=== PATIENT | male | born 1960 | race Caucasian/White ===

== ENCOUNTER 2021-09-23 13:54 | Outpatient (REF) | payer OTHER, SELFPAY ==
--- NOTE | ~2021-09-23 | CT_ITS ---
EXAMINATION: CT CHEST SCREENING CLINICAL INFORMATION: Former smoker one pack a day for 39 years. COMPARISON: None. TECHNIQUE: Multidetector volumetric CT imaging of the chest is performed without contrast using low dose technique. Additional 2D coronal and sagittal reformatted images and axial 3D maximum intensity projection (MIP) images are generated on the CT workstation. This CT examination was performed using dose optimization techniques as appropriate, variously including the following: *Automated exposure control *Adjustment of mA and/or kV according to patient size (this includes techniques or standardized protocols for targeted exams where dose is matched to indication/reason for exam; i.e. extremities or head) *Use of iterative reconstruction technique DLP: 44 mGy-cm FINDINGS: LUNGS: The lungs are hyperinflated and clear acute pneumonic consolidation. There is a 1 mm calcified nodule left lung apex anteriorly image 112/6, subpleural 1 mm nodule left lower lobe superior segment axial image 218/6, 4 mm nodule left upper lobe laterally image 267/6, 3 mm noncalcified nodule left upper lobe laterally image 329/6. No additional pulmonary nodules seen. MEDIASTINUM: The thyroid lobes are symmetric and normal. The central trachea and the bronchi widely patent. The heart size and pulmonary vascularity is normal. No pericardial effusion seen. The central trachea and the bronchi widely patent no abnormal size mediastinal or hilar lymph nodes seen. PLEURA: There is no pleural effusion. No pleural mass or thickening. AXILLA: There are small shotty lymph nodes in the axilla. The chest wall is unremarkable. UPPER ABDOMEN: Visualized liver, spleen, pancreas and bilateral adrenal glands unremarkable. OSSEOUS STRUCTURES: There is no lytic or sclerotic process seen. There is mild ventral spondylosis T7-T8 disc level. No lytic or sclerotic process seen. CT/CT lung screening IMPRESSION: Small scattered calcified and noncalcified pulmonary nodules. Hyperinflated lungs without acute process. ASSESSMENT: Lung-RADS category 2: Benign RECOMMENDATION: Low-dose annual CT chest.
== END 2021-09-23 13:55 | disposition home or self-care (01) ==
LOC: HO.CT 13:54
PROVIDERS: Visit Provider Physician Assistant Medical
DX: Z12.2 Encounter for screening for malignant neoplasm of respiratory organs (principal); Z87.891 Personal history of nicotine dependence
CPT/HCPCS: 71271; G0296

== ENCOUNTER 2022-11-03 13:10 | Outpatient (REF) | payer OTHER, SELFPAY ==
--- NOTE | ~2022-11-03 | CT_ITS ---
EXAMINATION: CT CHEST SCREENING CLINICAL INFORMATION: Smoking 39 pack years. Quit smoking 14 years ago COMPARISON: CT chest 09/23/2021 TECHNIQUE: Multidetector volumetric CT imaging of the chest is performed without contrast using low dose technique. Additional 2D coronal and sagittal reformatted images and axial 3D maximum intensity projection (MIP) images are generated on the CT workstation. This CT examination was performed using dose optimization techniques as appropriate, variously including the following: *Automated exposure control *Adjustment of mA and/or kV according to patient size (this includes techniques or standardized protocols for targeted exams where dose is matched to indication/reason for exam; i.e. extremities or head) *Use of iterative reconstruction technique DLP: 45 mGy-cm FINDINGS: LUNGS: The lungs are well-expanded and clear acute pneumonic process. A 1 mm calcified lung nodule left lung apex image 107/6, 1 mm subpleural nodule left lower lobe superior segment image 227/6, 4 mm calcified nodule left upper lobe laterally axial image 264/6 and a 3 mm noncalcified nodule left lower lobe laterally image 350/6 is stable. MEDIASTINUM: The thyroid lobes are symmetric and normal. The central trachea and the bronchi widely patent. Heart size and the great vessels are normal caliber. No pericardial effusion seen. CORONARY ARTERY CALCIFICATION: None visualized on this study. PLEURA: There is no pleural effusion. No pleural mass or thickening. AXILLA: No lymphadenopathy. UPPER ABDOMEN: Visualized liver, spleen, pancreas and bilateral adrenal glands unremarkable. There are no radiopaque gallstones or wall thickening. OSSEOUS STRUCTURES: No aggressive lytic or sclerotic process seen. CT/CT lung screening IMPRESSION: 1. Stable calcified and noncalcified pulmonary nodules. No new nodules seen. 2. No abnormal mediastinal or hilar adenopathy.. ASSESSMENT: Lung-RADS category 2: Benign RECOMMENDATION: Low-dose annual CT chest
== END 2022-11-03 13:11 | disposition home or self-care (01) ==
LOC: HO.CT 13:10
PROVIDERS: Visit Provider Physician Assistant Medical
DX: Z12.2 Encounter for screening for malignant neoplasm of respiratory organs (principal); Z87.891 Personal history of nicotine dependence
CPT/HCPCS: 71271

== ENCOUNTER 2024-01-04 12:51 | Outpatient (REF) | payer OTHER, SELFPAY ==
--- NOTE | ~2024-01-04 | CT_ITS ---
EXAMINATION: CT CHEST SCREENING CLINICAL INFORMATION: Nonsmoker. Quit one year ago. Smoked 1 pack per day. COMPARISON: CT lung screening 11/03/2022. TECHNIQUE: Multidetector volumetric CT imaging of the chest is performed without contrast using low dose technique. Additional 2D coronal and sagittal reformatted images and axial 3D maximum intensity projection (MIP) images are generated on the CT workstation. This CT examination was performed using dose optimization techniques as appropriate, variously including the following: *Automated exposure control *Adjustment of mA and/or kV according to patient size (this includes techniques or standardized protocols for targeted exams where dose is matched to indication/reason for exam; i.e. extremities or head) *Use of iterative reconstruction technique DLP: 52 mGy-cm FINDINGS: There is marked respiratory artifact at the lung bases interfering with diagnostic detail. PULMONARY NODULES: Multiple pulmonary nodules are again seen and stable compared to the prior study with the largest measuring 5 mm. Montoya images of all have been saved. For example: 4 mm left lower lobe (5:341, compare prior 5:348). 5 mm polygonal perifissural lymph node right upper lobe (5:257, compare prior 5:279). No new or worrisome nodule is seen. LUNGS: Mild emphysematous changes are seen. MEDIASTINUM: The mediastinum is normal. CORONARY ARTERY CALCIFICATION: None visualized on this study. PLEURA: There is no pleural effusion. No pleural mass or thickening. AXILLA: No lymphadenopathy. UPPER ABDOMEN: Unremarkable. OSSEOUS STRUCTURES: Unremarkable. CT/CT lung screening IMPRESSION: Stable benign-appearing pulmonary nodules. ASSESSMENT: Lung-RADS category 2: Benign RECOMMENDATION: Routine annual low-dose CT screening in 12 months.
== END 2024-01-04 12:52 | disposition home or self-care (01) ==
LOC: HO.CT 12:51
PROVIDERS: PCP Nurse Practitioner; Visit Provider Nurse Practitioner Family
DX: Z12.2 Encounter for screening for malignant neoplasm of respiratory organs (principal); Z87.891 Personal history of nicotine dependence
CPT/HCPCS: 71271

== ENCOUNTER 2024-03-13 09:38 | Outpatient (REF) | payer OTHER, SELFPAY ==
[2024-03-13 11:48] LABS: Anion Gap 11 (12-20); Blood Urea Nitrogen 13 mg/dL (9-16); Calcium 9.8 mg/dL (8.4-10.2); Carbon Dioxide 28 mmol/L (22-29); Chloride 107 mmol/L (96-108); Cholesterol 105 mg/dL (<200); Estimated Glomerular Filt Rate > 60; Glucose Random 190 mg/dL (60-115); HDL Cholesterol 46 mg/dL (>40); LDL Cholesterol Calculated 51 mg/dL (<100); Potassium 4.6 mmol/L (3.3-5.1); Sodium 141 mmol/L (135-145); Triglycerides 44 mg/dL (<150)
[2024-03-13 12:11] LABS: Creatinine Urine 70.08 mg/dL; Microalbumin Urine < 5.0 mg/L
== END 2024-03-13 09:39 | disposition home or self-care (01) ==
LOC: HO.HHCL 09:38
PROVIDERS: Visit Provider Nurse Practitioner Primary Care
DX: E11.69 Type 2 diabetes mellitus with other specified complication (principal); E78.5 Hyperlipidemia, unspecified
CPT/HCPCS: 36415; 80048; 80061; 82043; 82570

== ENCOUNTER 2025-01-13 13:02 | Outpatient (REF) | payer OTHER, SELFPAY ==
--- NOTE | ~2025-01-13 | CT_ITS ---
CLINICAL HISTORY: Z87.891 - Personal history of nicotine dependence CT lung cancer screening (LDCT) Comparison: CT/REG/[place]/SR - CT LUNG SCREENING - 01/04/24 13:[address]/REG/[place]/SR - CT LUNG SCREENING - 11/03/22 13:16 EST Technique: Axial CT images of the chest using low-dose technique. Referring provider counseled the patient on shared decision-making for LDCT screening. Additional counseling was provided on smoking cessation. Effective radiation dose total: DLP 31.1 mGycm, CTDIvol 1.1 mGy. Findings: Lung: No emphysema. Calcified granulomas. Stable 4.5 mm subpleural nodule of the left lower lobe series 4, image 95. Stable 5 mm nodule of the right upper lobe image 71. Coronary artery calcifications: None Limited upper abdomen: Unremarkable Other: None Impression: LungRADS 2 - Benign Appearance: Continue annual screening with low dose Chest CT in 12 months. ##L2# Category 1: Normal; continue annual screening Category 2: Benign appearance or behavior, continue annual screening Category 3: Probably benign, [address] recommended Category 4A: Suspicious, [address] recommended; may consider PET/CT Category 4B: Suspicious, Additional diagnostics and/or tissue sampling recommended Category 4X: Suspicious, Additional diagnostics and/or tissue sampling recommended Category 0: Recalls (incomplete screen due to Incomplete coverage, Noise, Respiratory motion, Expiration, Obscured by acute abnormality) This document has been electronically signed by: Oniel Dueñas MD on 01/13/2025 16:12:31
--- OUTSIDE RECORDS SUMMARY | 2025-01-13 15:50 | XMS_ITS | Encounter Summary ---
Author Organization [employer] [facility] Address [address] [place] [address] Care Team Providers Care Carrier Operator Name Role Phone Stefani Foster Primary Care Provider [phone] Reason for Visit * Reason Comments Med Refill Encounter Details Date Type Department Care Team ([facility] st Contact Info) Description 07/05/2024 Refill [facility] [address], [place] [phone] Stefani Foster ANP [address], [place] [phone] Vasculogenic erectile dysfunction, unspecified vasculogenic erectile dysfunction type Social History Tobacco Use Types Packs/Day Years Used Date Smoking Tobacco: Former Cigarettes Q uit: 2009 Smokeless Tobacco: Never Alcohol Use Standard Drinks/Week Comments Never 0 (1 standard drink = 0.6 oz pur e alcohol) Depression Answer Date Recorded Patient Health Questionnaire-9 Score 0 06/13/2024 Patient Health Questionnaire-9 Score 0 06/13/2024 Last PHQ-9: Questionnaire Data Not on file 0 06/13/2024 Housing Stability Answer Date Recorded What is your housing situation today? I have darrick cheung 08/16/[address] you li ve. Do you have problems with any of the following? None of the above 08/16/2023 Food Insecurity Answer Date Recorded Within the past 12 months, y ou worried that your food would run out before you got money to buy more: Never True 08/16/2023 Within the past 12 months,th e food you bought just didn't last and you didn't have enough money to get more: Never True 06/2023 Transportation Answer Date Recorded In the past 12 months, has l ack of transportation kept you from medical appts, meetings, work or from getting things needed for daily living? No 08/16/2023 Utilities Answer Date Recorded In the past 12 months, has t he electric, gas, oil or water company threatened to shut off services in your home? No 08/16/2023 Depression Answer Date Recorded Patient Health Questionnaire-2 Score 0 06/13/2024 Sex and Gender Information Value Date Recorded Sex Assigned at Male 08/07/2022 10:22 AM EDT Legal Sex Male 10:22 AM EDT Gender Identity Male 08/07/2022 10:22 AM EDT Sexual Orientation Straight 08/07/2022 10 :22 AM EDT documented as of this encounter Plan of Treatment Not on file documented as of this encounter Visit Diagnoses Diagnosis Vasculogenic erectile dysfunction, unspecified vasculogenic erectile dysfunction type documented in this encounter Additional Health Concerns Assessment Noted Time PHQ-9 Depression Total Score: 0 06/13/20 24 2:19 PM EDT documented as of this encounter Care Teams Carrier Operator Relationship Specialty Start Date End Date Stefani Foster ANP [address] [place] [phone] PCP - General Family Medicine 05/30/22 documented as of this encounter
--- OUTSIDE RECORDS SUMMARY | 2025-01-13 15:50 | XMS_ITS | Clinical Summary ---
Author Organization [employer] Address [address] [place] [address] [address] [place] [address] Care Team Providers Care Continuous Churn Buttermaker Name Role Phone Stefani Foster Primary Care Provider [phone] Allergies No known active allergies Medications latanoprost (Xalatan) 0.005 % ophthalmic solution Administer 1 drop into affected eye(s) at bed time. Active Dorzolamide HCl-Timolol Mal PF 2-0.5 % solution instill q drop into each eye twice a day for glaucoma Active brimonidine (AlphaGAN P) 0.2 % ophthalmic solution 02/13/20 23 Active FREESTYLE LITE test strip USE 1 BY TO SKIN ROUTE 2 TIMES EVERY DAY 05/05/20 22 Active ketorolac (Acular) 0.5 % ophthalmic solution INSTILL ONE DROP INTO THE OPERATIVE EYE 3 TIMES DAILY FOR 3 DAYS AFTER LASER 10/18/19 23 Active Rhopressa 0.02 % solution PONGA TONY GOTA EN LOS DOS OJOS AL ACOSTARSE 02/09/20 23 Active cholecalciferol (Vitamin D-3) 50 MCG (1999) capsule TAKE 2 CAPSULE BY MOUTH EVERY DAY 180 capsule 3 06/27/20 23 Active metFORMIN (Glucophage) 1000 MG tablet TAKE 1 TABLET BY ORAL ROUTE 2 TIMES EVERY DAY WITH MORNING AND EVENING MEALS FOR T2DM 180 tablet 3 06/25/20 24 Active aspirin (Aspirin Low Dose) 81 MG chewable tablet TAKE 1 TABLET BY MOUTH EVERY DAY 90 tablet 3 07/15/20 24 Active atorvastatin (Lipitor) 10 MG tablet TAKE 1 TABLET BY MOUTH EVERY DAY 90 tablet 3 07/15/20 24 Active lisinopril 5 MG tablet TAKE 1 TABLET BY MOUTH EVERY DAY 90 tablet 3 07/15/20 24 Active sildenafil (Viagra) 50 MG tabletIndications: Vasculogenic erectile dysfunction, unspecified vasculogenic erectile dysfunction type TAKE 1 TABLET 1 HOUR BEFORE SEXUAL RELATIONS ONCE DAILY NEEDED. 30 tablet 3 08/12/20 24 Active empagliflozin (Jardiance) 25 MGIndications:Type 2 diabetes mellitus with hyperlipidemia (CMS/HCC) (CMS/HCC) Take 1 tablet (25 mg) by mouth Once per day. 90 tablet 3 12/17/19 25 026 Active Jardiance 10 MG TAKE 1 TABLET BY ORAL ROUTE EVERY DAY IN THE MORNING FOR DIABETES 90 tablet 3 07/22/20 24 025 Discontin ued(Dose adjustmen t) Active Problems Problem Noted Date Diagnosed Date Erectile dysfunction 02/05/2023 Hyperlipidemia 02/05/2023 Type 2 diabetes mellitus with hyperlipidemia (CM S/HCC) 06/16/2021 Overview (06/30/2024): Lab Results Component Value Date HGBA1C 7.3 (A) 06/13/2024 HGBA1C 6.8 (A) 09/18/2023 HGBA1C 7.0 (A) 02/15/2023 A1c goal </= 7.0 Near though above goal. 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 Glaucoma 07/02/2012 Encounters Date Type Department Care Team Description 12/16/2024 1:15 PM EDT Office Visit [facility] [address] [place] [phone] Stefani Foster ANP Type 2 diabetes mellitus with hyperlipidemia (CMS/HCC) (CMS/HCC) (Primary Dx); Screening for malignant neoplasm of colon 12/16/2024 Travel 12/05/2024 Patient Outreach [facility] [address] [place] [address] [phone] Stefani Foster ANP Pre-visit Planning (SDOH Screening negative and Tobacco screening negative) 10/17/2024 Telephone [facility] [address] [place] [address] [phone] Nina Martínez MA December recall from Last 3 Months Immunizations Name Administration Dates Next Due Influenza injectable quadrivalent preservative f ree 09/18/2023 Influenza, IIV3, injectable 09/11/2014 Pfizer Covid-19 Vaccine 12+ 09/18/2023, Pneumococcal Polysaccharide PPSV23 08/08/2012 Tdap 12/16/2024,09/11/2014 Zoster, Recombinant 07/28/2022,01/21/2022 Family History Medical History Relation Name Comments Cancer Niece colon Relation Name Status Comments Niece Other Social History Tobacco Use Types Packs/Day Years Used Date Smoking Tobacco: Former Cigarettes Q uit: 2009 Smokeless Tobacco: Never Tobacco Cessation:Counseling Given: Not Answered Alcohol Use Standard Drinks/Week Comments Never 0 (1 standard drink = 0.6 oz pur e alcohol) Depression Answer Date Recorded Patient Health Questionnaire-9 Score 0 06/13/2024 Patient Health Questionnaire-9 Score 0 06/13/2024 Last PHQ-9: Questionnaire Data Not on file 0 06/13/2024 Housing Stability Answer Date Recorded What is your housing situation today? I have darrick cheung 12/05/[address] you li ve. Do you have problems with any of the following? None of the above 12/05/2024 Food Insecurity Answer Date Recorded Within the past 12 months, y ou worried that your food would run out before you got money to buy more: Never True 12/05/2024 Within the past 12 months,th e food you bought just didn't last and you didn't have enough money to get more: Never True Transportation Answer Date Recorded In the past 12 months, has l ack of transportation kept you from medical appts, meetings, work or from getting things needed for daily living? No 12/05/2024 Utilities Answer Date Recorded In the past 12 months, has t he electric, gas, oil or water company threatened to shut off services in your home? No 12/05/2024 Depression Answer Date Recorded Patient Health Questionnaire-2 Score 0 06/13/2024 Internet Access Answer Date Recorded Internet Access Q1 No 12/05/2024 Internet Access Q2 I do not want or need it 11/09 Sex and Gender Information Value Date Recorded Sex Assigned at Male 08/07/2022 10:22 AM EDT Legal Sex Male 10:22 AM EDT Gender Identity Male 08/07/2022 10:22 AM EDT Sexual Orientation Straight 08/07/2022 10 :22 AM EDT Last Filed Vital Signs Vital Sign Reading Time Taken Comments Blood Pressure 142/83 12/16/2024 1:24 PM EDT Pulse 70 12/16/2024 1:24 PM EDT Temperature 36.7 ??C (98 ??F) 12/16/2024 1:24 PM EDT Respiratory Rate 17 12/16/2024 1:24 PM EDT Oxygen Saturation 98% 12/16/2024 1:24 PM EDT Inhaled Oxygen Concentration - - Weight 65.8 kg (145 lb) 12/16/2024 1:24 PM EDT Height 172.7 cm (5' 8 ) 12/16/2024 1:24 PM EDT Body Mass Index 22.05 12/16/2024 1:24 PM EDT Plan of Treatment Health Maintenance Due Date Last Done Comments CT Colonography 1961 FIT DNA/Cologuard 1961 FIT 1961 FOBT 1961 Sigmoidoscopy 1961 Eye Exam 1971 Pneumococcal Vaccine: 50+ Years (2 of 2 - PCV) 08/08/2013 08/08/2012 Colonoscopy 12/04/2023 Colorectal Cancer Screening 12/04/2023 COVID-19 Vaccine ( season) 2024 09/18/2023, 03/01/2022, 03/01/2021, Additional history exists Influenza Vaccine (#1) 2024 09/18/2023, 2013 Diabetes: Urine Protein Screening 03/13/2025 03/13/2024, 06/16/2021, 09/07/2020, Additional history exists Lipid Panel 03/13/2025 03/13/2024, 02/05, 06/16/2021, Additional history exists Diabetes: Hemoglobin A1C 03/18/2025 025, 06/13/2024, 09/18/2023, Additional history exists Depression Screening 06/13/2025 06/13/2024, 06/13/20 24 SDOH Screening 12/05/2025 12/05/2024 Alcohol/Substance Use Screening 12/16/2025 12/16/2024 Diabetes: Foot Exam 12/16/2025 12/16/2024, 12/16/2024, 09/18/2023, Additional history exists Tobacco Screening 12/16/2025 12/16/2024 DTaP/Tdap/Td Vaccines (3 - Td or Tdap) 12/16/2034 12/16/2024, 09/11/2014 RSV Patients and Patients Aged 60 years or older (1 - 1-dose 75+ series) 2036 HIV Screening Completed 02/16/2022 Hepatitis C Screening Completed 02/16/2022 Zoster Vaccines Completed 07/28/2022, 01/21/2022 HIB Vaccines Aged Out No longer eligi ble based on patient's age to complete this topic HPV Vaccines Aged Out No longer eligi ble based on patient's age to complete this topic Hepatitis A Vaccines Aged Out No long er eligible based on patient's age to complete this topic Hepatitis B Vaccines Aged Out No long er eligible based on patient's age to complete this topic IPV Vaccines Aged Out No longer eligi ble based on patient's age to complete this topic Meningococcal Vaccine Aged Out No aleksander bridget eligible based on patient's age to complete this topic RSV under 20 months Aged Out No longe r eligible based on patient's age to complete this topic Rotavirus Vaccines Aged Out No longer eligible based on patient's age to complete this topic Procedures Procedure Name Priority Date/Time Associated Diagnosis Comments POCT GLYCATED HEMOGLOBIN, TOTAL Routine 12/16/2024 1:26 PM EDT Type 2 diabetes mellitus with hyperlipidemia (CMS/HCC) (CMS/HCC) POCT GLUCOSE Routine 12/16/2024 1:25 PM EDT Type 2 diabetes mellitus with hyperlipidemia (CMS/HCC) (CMS/HCC) ALBUMIN, RANDOM URINE W/CREATININE Routine 03/13/2024 9:44 AM EDT Type 2 diabetes mellitus with hyperlipidemia (CMS/HCC) (CMS/HCC) LIPID PANEL, STANDARD Routine 03/13/2024 9:40 AM EDT Type 2 diabetes mellitus with hyperlipidemia (CMS/HCC) (CMS/HCC) ZZZ HISTORICAL HEPATITIS C AB W/REFL TO HCV RNA, QN, PCR Routine 02/16/2022 10:14 AM EDT HIV 1/2 ANTIGEN/ANTIBODY, FOURTH GENERATION W/RFL Routine 02/16/2022 10:14 AM EDT from Last 3 Months or Most Recently Relevant to Health Maintenance Results * (ABNORMAL) POCT HGB A1C (12/16/2024 1:26 PM EDT) Hemoglobin A1C 7.4(A) 4.0 - 6.0 % QC Media Lot # [id number] Lot# Expiration Date Blood 12/16/2024 1:26 PM EDT us Stefani PARADA POINT OF CARE TEST ENTER/EDIT OR DERABLES Final Result * POCT Glucose (12/16/2024 1:25 PM EDT) Glucose Blood, POC 153 60 - 200 mg/dL QC Media Lot # [id number] Lot# Expiration Date 122 Blood Capillary blood specimen / Unknown 12/16/2024 1:25 PM EDT us Stefani PARADA POINT OF CARE TEST ENTER/EDIT OR DERABLES Final Result * Albumin, Random Urine W/Creatinine (03/13/2024 9:44 AM EDT) Creatinine, Urine 70.08 mg/dL [facility] Microalbumin Urine <5.0 mg/L [facility] Microalbum Creatinine Ratio Ur TNP <30 ug/mg cr [facility] Comment:Unable to calculate albumin/creatinine ratio due to lowmicroalbumin or creatinine result. Urine 03/13/2024 9:44 AM EDT 03/13/2024 11:22 AM EDT Stefani Foster ANP LAB URINE ORDERABLES Final Resul t Performing Organization Address [facility] Co de Phone Number [facility] [address] [place] [phone] * Lipid Panel, Standard (03/13/2024 9:40 AM EDT) Triglycerides 44 <150 mg/dL [facility] Comment:Desirable Triglyceri de: less than 150 mg/dLBorderline High Triglyceride 150-199 mg/dLHigh Triglyceride: 200-499 mg/dLVery High Triglyceride: greater than or equal to 5OO mg/dL Cholesterol 105 <200 mg/dL [facility] Comment:Desirable Cholestero l: less than 200 mg/dLBorderline High Cholesterol: 200-239 mg/dLHigh Cholesterol: greater than 239 mg/dL LDL Cholesterol Calculated 51 <100 mg/dL [facility] Comment:Desirable LDL: less than 100 mg/dLNear Optimal/Above Optimal LDL: 110- 129 mg/dLBorderline High LDL: 130-159 mg/dLHigh LDL: 160-189 mg/dLVery High LDL: greater than or equal to 190 mg/dL HDL Cholesterol 46 >40 mg/dL [facility] Comment:Desirable HDL: great er than 40 mg/dL Note: This HDL assay may give artificially low results in patients with liver disease. Blood Venous blood specimen / Unknown 03/13/2024 9:40 AM EDT 03/13/2024 11:21 AM EDT Stefani Foster ANP LAB BLOOD ORDERABLES Final Resul t Performing Organization Address [facility] Co de Phone Number [facility] [address] [place] [address] [phone] * HEPATITIS C AB W/REFL TO HCV RNA, QN, PCR (02/16/2022 10:14 AM EDT) HEPATITIS C ANTIBODY NON-REACT VASILIY NON-REACT VASILIY [facility] INDEX 0.01 <1.00 [facility] Comment: ?? HCV antibody was non-reactive. There is no laboratory ?? evidence of HCV infection. ?? In most cases, no further action is required. However, if recent HCV exposure is suspected, a test for HCV RNA (test code 72097) is suggested. ?? For additional information please refer to http://[employer].MyWobile/faq/PPR54x7 (This link is being provided for informational/ educational purposes only.) ?? 02/16/2022 10:1 4 AM EDT us Luci Carvajal NP HISTORICAL/NON ORDERABLE LABS F inal Result Performing Organization Address [facility] de Phone Number [facility] [address] * HIV 1/2 ANTIGEN/ANTIBODY,FOURTH GENERATION W/RFL (02/16/2022 10:14 AM EDT) HIV-1/2 ANTIGEN AND ANTIBODIES, 4TH GENERATION W/ REFLEX NON-REACT VASILIY NON-REACT VASILIY [facility] Comment: HIV-1 antigen and HIV-1/HIV-2 antibodies were not detected. There is no laboratory evidence of HIV infection. ?? PLEASE NOTE: This information has been disclosed to you from records whose confidentiality may be protected by state law. ??If your state requires such protection, then the state law prohibits you from making any further disclosure of the information without the specific written consent of the person to whom it pertains, or as otherwise permitted by law. A general authorization for the release of medical or other information is NOT sufficient for this purpose. ? For additional information please refer to http://[employer].MyWobile/faq/WOD410 (This link is being provided for informational/ educational purposes only.) ? The performance of this assay has not been clinically validated in patients less than 2 years old. ?? 02/16/2022 10:1 4 AM EDT us Luci Carvajal NP LAB BLOOD ORDERABLES Final Resu lt Performing Organization Address [facility] Co de Phone Number [facility] [address] from Last 3 Months or Most Recently Relevant to Health Maintenance Insurance [facility] Care Teams Continuous Churn Buttermaker Relationship Specialty Start Date End Date Stefani Foster ANP [address] [place] [phone] PCP - General Family Medicine 05/30/22
== END 2025-01-13 13:03 | disposition home or self-care (01) ==
LOC: HO.CT 13:02
PROVIDERS: PCP Nurse Practitioner; Visit Provider Physician Assistant Medical
DX: Z12.2 Encounter for screening for malignant neoplasm of respiratory organs (principal); Z87.891 Personal history of nicotine dependence
CPT/HCPCS: 71271

== ENCOUNTER → 2025-01-13 13:04 | Outpatient (BNV) | payer OTHER, SELFPAY | PROVIDERS: PCP Nurse Practitioner; Visit Provider Nuclear Medicine | DX: Z87.891 Personal history of nicotine dependence (principal) | CPT/HCPCS: 71271 ==

== ENCOUNTER 2025-04-21 10:02 | Outpatient (REF) | payer OTHER, SELFPAY ==
--- OUTSIDE RECORDS SUMMARY | 2025-04-21 11:00 | XMS_ITS | Encounter Summary ---
Author Organization [employer] Address [address] [place] [address] [address] [place] [address] Care Team Providers Care Application Infrastructure Engineer Name Role Phone Stefani Foster Primary Care Provider [phone] Reason for Visit * Reason Comments Med Refill Encounter Details Date Type Department Care Team ([facility] st Contact Info) Description 07/05/2024 Refill [facility] [address], [place] [phone] Stefani Foster ANP [address] [place], [place] [phone] Vasculogenic erectile dysfunction, unspecified vasculogenic erectile dysfunction [...] as of this encounter Plan of Treatment Upcoming Encounters Date Type Department Care Team (Late st Contact Info) Description 04/28/2025 1:15 PM EDT Office Visit [facility] [address] [place] [phone] Stefani Foster ANP [address] [place] [address] documented as of this encounter Visit Diagnoses Diagnosis Vasculogenic erectile dysfunction, unspecified vasculogenic erectile dysfunction type documented in this encounter Additional Health Concerns Assessment Noted Time PHQ-9 Depression Total Score: 0 06/13/20 24 2:19 PM EDT documented as of this encounter Care Teams Application Infrastructure Engineer Relationship Specialty Start Date End Date Stefani Fotser ANP [address] [place] [phone] PCP - General Family Medicine 05/30/22 documented as of this encounter
[2025-04-21 11:53] LABS: Alanine Aminotransferase 18 U/L (0-40); Albumin Level 4.5 g/dL (3.5-5.0); Alkaline Phosphatase 60 U/L (39-117); Anion Gap 12 (12-20); Aspartate Amino Transferase 17 U/L (5-37); Blood Urea Nitrogen 12 mg/dL (9-16); Calcium 9.3 mg/dL (8.4-10.2); Carbon Dioxide 28 mmol/L (22-29); Chloride 106 mmol/L (96-108); Cholesterol 112 mg/dL (<200); Estimated Glomerular Filt Rate > 60; HDL Cholesterol 44 mg/dL (>40); Potassium 4.1 mmol/L (3.3-5.1); Sodium 142 mmol/L (135-145); Total Protein 6.7 g/dL (6.5-8.0); Triglycerides 51 mg/dL (<150)
[2025-04-21 12:29] LABS: Vitamin B12 468 pg/mL (200-900)
== END 2025-04-21 10:03 | disposition home or self-care (01) ==
LOC: HO.HHCL 10:02
PROVIDERS: PCP Nurse Practitioner Primary Care; Visit Provider Nurse Practitioner Primary Care
DX: E11.69 Type 2 diabetes mellitus with other specified complication (principal); E78.5 Hyperlipidemia, unspecified
CPT/HCPCS: 36415; 80053; 80061; 82043; 82570; 82607